=== PATIENT | male | born 1945 | race Hispanic/Latino ===

== ENCOUNTER → 2018-07-12 | Outpatient (CLI) | payer OTHER | END | disposition home or self-care (01) | LOC: SHCH 11:22 | PROVIDERS: ATTEND Internal Medicine Cardiovascular Disease | DX: I65.23 Occlusion and stenosis of bilateral carotid arteries (principal); I25.10 Atherosclerotic heart disease of native coronary artery without angina pectoris | CPT/HCPCS: 93880; 93925 ==

== ENCOUNTER 2018-09-05 05:44 | Day surgery (SDC) | payer OTHER ==
[2018-09-02 14:30] LABS: BASOPHILS % (AUTO) 0.4 % (0.0-5.0); EOSINOPHILS % (AUTO) 2.3 % (0.0-8.0); HEMATOCRIT 33.3 % (42-54); LYMPHOCYTES % (AUTO) 31.9 % (21.0-51.0); MEAN CORPUSCULAR HEMOGLOBIN 29.9 pg (27.0-33.0); MEAN CORPUSCULAR HGB CONC 34.8 g/dL (32.0-36.0); MEAN CORPUSCULAR VOLUME 86.1 fL (79-99); MONOCYTES % (AUTO) 9.4 % (3.0-13.0); PLATELET COUNT (AUTO) 206 K/uL (130-400); RED BLOOD CELL COUNT(AUTO) 3.87 MIL/uL (4.50-6.20); RED CELL DISTRIBUTION WIDTH 13.6 % (11.0-15.5); WHITE BLOOD COUNT (AUTO) 7.1 K/uL (4.8-10.8)
[2018-09-02 14:34] VITALS: BP 164/59
[2018-09-02 14:37] LABS: APPEARANCE,URINE Clear (CLEAR); BILIRUBIN,URINE Negative (NEGATIVE); COLOR,URINE Yellow (YELLOW); GLUCOSE, URINE (UA) Negative (NEGATIVE); KETONES,URINE Negative (NEGATIVE); LEUKOCYTE ESTERASE ,URINE Negative (NEGATIVE); NITRATE,URINE Negative (NEGATIVE); OCCULT BLOOD,URINE Negative (NEGATIVE); PH,URINE 5.5 (5.0-8.0); PROTEIN,URINE Negative (NEGATIVE); UROBILINOGEN,URINE 0.2 mg/dL (0.2-1.0)
[2018-09-02 14:39] LABS: CREATININE 0.9 mg/dL (0.5-1.5); POTASSIUM 4.3 mmol/L (3.5-5.1)
[2018-09-02 14:42] LABS: INR 0.9 (0.85-1.15); PARTIAL THROMBOPLASTIN TIME 22.2 SEC (26.3-35.5); PROTHROMBIN TIME 9.5 SEC (9.6-11.6)
--- NOTE | 2018-09-02 15:30 | NUR ---
CRITICAL LAB REPORTED [facility] ( 89) TO [facility] TA FOR DR. GARNER. ORDER RECEIVED AND CARRIED OUT. PER SILVANA PT WILL TO STOP HYDROCHLOROTHIZIDE AND LAB DRAW IN AM DAY OF PROCEDURE.
[~2018-09-05] VITALS: Ht 166.4 cm; Wt 94.8 kg
[2018-09-05] VITALS (11 sets, daily range): BP systolic 115–155; BP diastolic 42–96
[~2018-09-05 05:44] MED LIST: A AND D; AMLO10TA7 PO; ASPI-555 PO; ATOR-2 PO; CETI10TA57 PO; DESONIDE; DOCO1CAP5 PO; FERR324T4 PO; HYDR-2534 PO; LISI40TA4 PO; METF-445 PO; METO50TA18 PO; RANI150T7 PO
[2018-09-05] MEDS ORDERED: SODIUM CHLORIDE 0.9% 1000ML 1,000 ML IV ONE (06:21)
[2018-09-05 06:41] LABS: POTASSIUM 4.1 mmol/L (3.5-5.1)
[2018-09-05] MEDS ORDERED: CYANOCOBALAMIN PO (07:19)
[2018-09-05] MEDS ORDERED: INSU100I3 SQ (07:19)
[2018-09-05] MEDS ORDERED: MULT-1203 PO (07:19)
[2018-09-05] MEDS ORDERED: INSLAN SQ (07:19)
[2018-09-05] MEDS ORDERED: SODIUM CHLORIDE 0.9% 1000ML 1,000 ML IV SCH ×2 (08:00→10:04)
[2018-09-05] MEDS ORDERED: BIVALIRUDIN 250 MG/VIAL IV ONE (08:16)
[2018-09-05] MEDS ORDERED: IOHEXOL 350 MG/ML 100ML INFUS..BTL IV ONE (08:16)
[2018-09-05] MEDS ORDERED: IOHEXOL-350 50ML VIAL IV ONE (08:16)
[2018-09-05] MEDS ORDERED: NITROGLYCERIN 5 MG/ML 10 ML VIAL IV ONE (08:16)
[2018-09-05] MEDS ORDERED: LIDOCAINE HCL 2% 20ML ONE (08:16)
[2018-09-05] MEDS ORDERED: IODIXANOL 320 MG/ML 100 ML VIAL ONE (08:19)
[2018-09-05] MEDS ORDERED: HEPARIN SODIUM 1000UNIT/ML 10ML VIAL ONE (08:43)
[2018-09-05] MEDS ORDERED: MIDAZOLAM HCL 1 MG/ML 2ML VIAL ONE ×2 (08:44→09:39)
[2018-09-05] MEDS ORDERED: FENTANYL CITRATE PF 50 MCG/1 ML 2ML VIAL ONE (08:44)
[2018-09-05] MEDS ORDERED: LIDOCAINE HCL 1% 20 ML VIAL ONE (09:10)
[2018-09-05] MEDS ORDERED: GLUCAGON 1MG KIT 1 MG ML IM PRN (10:15)
[2018-09-05] MEDS ORDERED: HYDRALAZINE HCL 20 MG/ML VIAL IV PRN (10:15)
[2018-09-05] MEDS ORDERED: METOPROLOL TARTRATE 1 MG/ML 5ML VIAL IV PRN (10:15)
[2018-09-05] MEDS ORDERED: DEXTROSE 50%-WATER 50 ML DISP.SYRIN IV PRN (10:15)
[2018-09-05] MEDS ORDERED: INSULIN HUMULIN R 100 UNIT/ML 3ML SQ SCH ×2 (11:30)
== END 2018-09-05 15:10 | disposition home or self-care (01) ==
LOC: DAH 05:44
PROVIDERS: ATTEND Internal Medicine Cardiovascular Disease
DX: I70.213 Atherosclerosis of native arteries of extremities with intermittent claudication, bilateral legs (principal); Z79.899 Other long term (current) drug therapy; Z79.84 Long term (current) use of oral hypoglycemic drugs; Z68.34 Body mass index [BMI] 34.0-34.9, adult; Z79.82 Long term (current) use of aspirin; Z98.890 Other specified postprocedural states; E78.5 Hyperlipidemia, unspecified; I65.29 Occlusion and stenosis of unspecified carotid artery; I10 Essential (primary) hypertension; E11.9 Type 2 diabetes mellitus without complications; Z79.4 Long term (current) use of insulin
CPT/HCPCS: 36200; 36415 ×2; 71045; 75630; 80048 ×2; 81003; 82948; 85025; 85610; 85730; 93005; A4606; C1769; C1887; C1894 ×3; J0583; J1644 ×2; J2250 ×2; J3010; J3490 ×2; J7030; Q9967; 99156; 99157

== ENCOUNTER 2018-12-14 06:45 | Inpatient (IN) | payer OTHER | END 2018-12-16 10:45 | disposition home or self-care (01) | LOC: DAHIP 06:45 → 2BH 10:27 | PROC: 041 Lower Arteries, Bypass (ICD-10-PCS; principal; 2018-12-14 08:00) | DX: I74.5 Embolism and thrombosis of iliac artery (principal); E11.51 Type 2 diabetes mellitus with diabetic peripheral angiopathy without gangrene; I11.9 Hypertensive heart disease without heart failure; Z86.73 Personal history of transient ischemic attack (TIA), and cerebral infarction without residual deficits ==

== ENCOUNTER → 2019-11-01 | Outpatient (CLI) | payer OTHER ==
[~2019-11-01] MED LIST changes: -A AND D; +ASPI-1005 PO; -ASPI-555 PO; +CLOP75TA14 PO; +CYANOCOBALAMIN PO; -DESONIDE; +INSLAN SQ; +INSU100I3 SQ; +MULT-1203 PO; +TRAM50TA4 PO
== END | disposition home or self-care (01) ==
LOC: SHCH 09:57
PROVIDERS: ATTEND Internal Medicine Cardiovascular Disease
DX: I65.23 Occlusion and stenosis of bilateral carotid arteries (principal); I25.10 Atherosclerotic heart disease of native coronary artery without angina pectoris
CPT/HCPCS: 93880

== ENCOUNTER 2020-03-24 13:00 | Emergency (ER) | payer OTHER ==
[~2020-03-24 13:00] MED LIST changes: +AMLO-258 PO; -AMLO10TA7 PO
[2020-03-24 13:32] LABS: BASOPHILS % (AUTO) 0.5 % (0.0-5.0); EOSINOPHILS % (AUTO) 2.1 % (0.0-8.0); HEMATOCRIT 28.7 % (42-54); LYMPHOCYTES % (AUTO) 2.7 % (21.0-51.0); MEAN CORPUSCULAR HEMOGLOBIN 29.3 pg (27.0-33.0); MEAN CORPUSCULAR HGB CONC 34.8 g/dL (32.0-36.0); MEAN CORPUSCULAR VOLUME 84.2 fL (79-99); MONOCYTES % (AUTO) 6.1 % (3.0-13.0); NEUTROPHILS % (AUTO) 87.2 % (40.0-77.0); PLATELET COUNT (AUTO) 174 K/uL (130-400); RED BLOOD CELL COUNT(AUTO) 3.41 MIL/uL (4.50-6.20); RED CELL DISTRIBUTION WIDTH 13.4 % (11.0-15.5); WHITE BLOOD COUNT (AUTO) 11.6 K/uL (4.8-10.8)
[2020-03-24] MEDS ORDERED: ONDANSETRON HCL 4 MG/2 ML VIAL ONE (13:40)
[2020-03-24 13:41] LABS: CREATININE 1.3 mg/dL (0.5-1.5); POTASSIUM 3.2 mmol/L (3.5-5.1)
[2020-03-24] MEDS ORDERED: VANCOMYCIN 1GM+NS 250ML 250 ML IV ONE (13:41)
[2020-03-24] MEDS ORDERED: MORPHINE SULFATE 2 MG/ML 1ML SYG ONE (13:41)
[2020-03-24] MEDS ORDERED: CLINDAMYCIN 600 MG/D5% WATER 50 ML IV ONE (13:41)
[2020-03-24 13:43] LABS: INR 0.97 (0.85-1.15); PARTIAL THROMBOPLASTIN TIME 35.7 SEC (26.3-35.5); PROTHROMBIN TIME 10.5 SEC (9.6-11.6)
[2020-03-24] MEDS ORDERED: IOHEXOL-350 75 ML VIAL IV ONE (13:46)
[2020-03-24 13:49] LABS: ALBUMIN 2.5 g/dL (3.5-5.0); BILIRUBIN,TOTAL 0.6 mg/dL (0.2-1.0)
[2020-03-24 14:03] LABS: CRP QUANTITATIVE 453.1 mg/L (0.00-9.0)
[2020-03-24 14:04] LABS: APPEARANCE,URINE Clear (CLEAR); BILIRUBIN,URINE Negative (NEGATIVE); COLOR,URINE Yellow (YELLOW); GLUCOSE, URINE (UA) Negative (NEGATIVE); KETONES,URINE Negative (NEGATIVE); LEUKOCYTE ESTERASE ,URINE Negative (NEGATIVE); NITRATE,URINE Negative (NEGATIVE); OCCULT BLOOD,URINE Negative (NEGATIVE); PROTEIN,URINE POS 1+ mg/dL (NEGATIVE); UROBILINOGEN,URINE 0.2 mg/dL (0.2-1.0)
[2020-03-24 14:24] LABS: BACTERIA,URINE Few /HPF (None Seen); MUCUS,URINE Few LPF (None Seen); RBC,URINE 0-1 /HPF (0-1); SQUAMOUS EPITHELIAL CELL,UR Few /HPF (0-2)
[2020-03-24] MEDS ORDERED: POTASSIUM CHLORIDE 20 MEQ ERTAB PO ONE (14:32)
--- NOTE | 2020-03-24 16:13 | NUR ---
15:21 CALLED [facility] AT [phone] TO INITIATE TRANSFER FOR SURGERY SERVICES AT [facility]; SPOKE WITH DANNY; SHE REQUESTED FACE SHEET BE FAXED TO [phone]; FAXED FACE SHEET AND CT READ. 16:00 TRANSFER CENTER CALLED WANTING TO SPEAK TO EDMD; PROVIDED THEM WITH NUMBER TO ED
[2020-03-24] MEDS ORDERED: FENTANYL CITRATE PF 50 MCG/1 ML 2ML VIAL ONE ×2 (18:19→20:02)
== END 2020-03-24 21:00 | disposition short-term general hospital (02) ==
LOC: EDH 13:00
DX: L02.214 Cutaneous abscess of groin (principal); D72.829 Elevated white blood cell count, unspecified; Z20.828 Contact with and (suspected) exposure to other viral communicable diseases; E11.9 Type 2 diabetes mellitus without complications; I10 Essential (primary) hypertension; E78.00 Pure hypercholesterolemia, unspecified; I25.10 Atherosclerotic heart disease of native coronary artery without angina pectoris; I73.9 Peripheral vascular disease, unspecified; Z98.890 Other specified postprocedural states
CPT/HCPCS: 36415; 71045; 74177; 80053; 81001; 82550; 84484; 85025; 85610; 85730; 86140; 87040; 87426; 93005; 96365; 96366; 96367; 96375; 96376; 99285; J2405; J3010 ×2; J3370; J3490; Q9967; U0003

== ENCOUNTER → 2021-01-29 | Outpatient (CLI) | payer OTHER ==
[~2021-01-29] MED LIST changes: -HYDR-2534 PO; +HYDR50TA PO; -LISI40TA4 PO; +LISI40TA9 PO
== END | disposition home or self-care (01) ==
LOC: SHCH 14:08
PROVIDERS: ATTEND Internal Medicine Cardiovascular Disease
DX: I65.23 Occlusion and stenosis of bilateral carotid arteries (principal)
CPT/HCPCS: 93880

== ENCOUNTER → 2021-12-24 | Outpatient (CLI) | payer OTHER | END | disposition home or self-care (01) | LOC: SHCH 10:06 | PROVIDERS: ATTEND Internal Medicine Cardiovascular Disease | DX: I10 Essential (primary) hypertension (principal); I73.9 Peripheral vascular disease, unspecified; I65.23 Occlusion and stenosis of bilateral carotid arteries | CPT/HCPCS: 93880 ==

== ENCOUNTER → 2022-12-03 | Outpatient (CLI) | payer OTHER ==
[~2022-12-03] MED LIST changes: +CLOP-31 PO; -CLOP75TA14 PO
== END | disposition home or self-care (01) ==
LOC: SHCH 10:45
PROVIDERS: ATTEND Internal Medicine Cardiovascular Disease
DX: G45.1 Carotid artery syndrome (hemispheric) (principal); E78.5 Hyperlipidemia, unspecified; I73.9 Peripheral vascular disease, unspecified; I10 Essential (primary) hypertension; E11.9 Type 2 diabetes mellitus without complications; I71.40 Abdominal aortic aneurysm, without rupture, unspecified
CPT/HCPCS: 93880